=== PATIENT | female | born 1960 | race Caucasian/White ===

== ENCOUNTER → 2016-10-08 | Outpatient (REF) | payer SELFPAY | LOC: LAB 11:54 | DX: Z13.9 Encounter for screening, unspecified (principal); E04.9 Nontoxic goiter, unspecified ==

== ENCOUNTER → 2016-12-15 | Outpatient (REF) | LOC: LAB 07:07 → EDSTATUS 07:31 | DX: D64.9 Anemia, unspecified (principal); E03.9 Hypothyroidism, unspecified ==